=== PATIENT | female | born 1945 | race Caucasian/White ===

== ENCOUNTER 2017-12-12 06:03 | Day surgery (SDC) | payer MEDICARE, OTHER ==
[2017-12-05 11:46] LABS: BASOPHILS % (AUTO) 0.5 % (0-1); EOSINOPHILS # (AUTO) 0.1 X10'3 (0-0.9); EOSINOPHILS % (AUTO) 2.3 % (0-6); LYMPHOCYTES # (AUTO) 2.4 X10'3 (1.1-4.8); LYMPHOCYTES % (AUTO) 37.1 % (21-51); MEAN CORPUSCULAR HEMOGLOBIN 31.1 PG (27.0-31.0); MEAN CORPUSCULAR HGB CONC 33.3 % (33.0-36.5); MEAN CORPUSCULAR VOLUME 93.4 FL (78-98); MEAN PLATELET VOLUME 7.8 FL (7.4-10.4); MONOCYTES # (AUTO) 0.7 X10'3 (0-0.9); MONOCYTES % (AUTO) 10.4 % (2-12); NEUTROPHILS # (AUTO) 3.2 X10'3 (1.8-7.7); NEUTROPHILS % (AUTO) 49.7 % (42-75); PRE OP HEMATOCRIT 38.2 % (35.0-45.0); PRE OP HEMOGLOBIN 12.7 g/dL (12.0-16.0); PRE OP PLATELET COUNT 221 X10'3 (140-440); RED BLOOD COUNT 4.08 X10'6 (4.20-5.60); RED CELL DISTRIBUTION WIDTH 14.3 % (11.5-14.5)
[2017-12-05 12:00] LABS: ALBUMIN 3.7 G/DL (3.4-5.0); ALBUMIN/GLOBULIN RATIO 1.1 (1.1-1.5); ALKALINE PHOSPHATASE 98 IU/L (46-116); BLOOD UREA NITROGEN 16 MG/DL (7-18); BUN/CREATININE RATIO 20.3 (6.6-38.0); CALCIUM 8.8 MG/DL (8.5-10.1); CHLORIDE 105 MMOL/L (99-107); CREATININE 0.79 MG/DL (0.40-0.90); PRE OP ALT 28 U/L (30-65); PRE OP ANION GAP 6 (8-16); PRE OP AST 22 U/L (10-37); PRE OP BILIRUB, TOTAL 0.4 MG/DL (0.0-1.0); PRE OP GLUCOSE 92 MG/DL (70-104); PRE OP POTASSIUM 4.5 MMOL/L (3.4-5.1); PRE OP SODIUM 140 MMOL/L (135-145); TOTAL PROTEIN 7.2 G/DL (6.4-8.2); eGFR 71 ML/MIN
[~2017-12-12] VITALS: Ht 168.9 cm; Wt 60.9 kg
[~2017-12-12 06:03] MED LIST: ASCO-139 PO; ATOR40TA72 PO; CHOL50004 PO; CITA20TA19 PO; LEVE750T PO; VITA150T PO; ceFAZolin 1,000 MG/D5W 50ML IVPB Premixed bag IV ONE; famotidine 20mg tablet PO ONE; ringers solution, lacted 1,000 ML IV SCH
[2017-12-12] MEDS ORDERED: ringers solution, lacted 1,000 ML IV SCH (07:59)
[2017-12-12] MEDS ORDERED: proCHLORperazine 10 MG/2 ml inj IV PRN (08:00)
[2017-12-12] MEDS ORDERED: meperidine/PF 25mg/ml syringe IV PRN ×3 (08:00)
[2017-12-12] MEDS ORDERED: morphine 4 MG/ML inj SYRINge IV PRN ×2 (08:00)
[2017-12-12] MEDS ORDERED: ondansetron/PF 4mg/2ml inj IV PRN (08:00)
[2017-12-12 08:09] VITALS: BP 120/66
[2017-12-12 08:18] VITALS: BP 120/66
[2017-12-12] MEDS ORDERED: BUPIVAcaine/PF 2.5mg/ml (0.25%) 10ml vial ONE (08:33)
[2017-12-12] MEDS ORDERED: LIDOcaine 0.5% (5mg/ml) 50ml vial ONE (08:37)
[2017-12-12] MEDS ORDERED: fentaNYL/PF 50MCG/1 ML 2ML syringe ONE (08:38)
[2017-12-12] MEDS ORDERED: MIDAZolam 5mg/5ml vial ONE (08:39)
[2017-12-12 09:22] VITALS: BP 111/60
[2017-12-12 09:32] VITALS: BP 108/64
[2017-12-12 09:42] VITALS: BP 129/77
[2017-12-12 09:52] VITALS: BP 129/74
== END 2017-12-12 10:02 | disposition home or self-care (01) ==
LOC: PAS 06:03
PROVIDERS: ATTEND Orthopaedic Surgery Hand Surgery
DX: M18.11 Unilateral primary osteoarthritis of first carpometacarpal joint, right hand (principal); M25.741 Osteophyte, right hand; M19.90 Unspecified osteoarthritis, unspecified site; E03.9 Hypothyroidism, unspecified; Z72.89 Other problems related to lifestyle; Z85.72 Personal history of non-Hodgkin lymphomas; Z92.21 Personal history of antineoplastic chemotherapy; Z95.0 Presence of cardiac pacemaker; Z85.118 Personal history of other malignant neoplasm of bronchus and lung; Z79.899 Other long term (current) drug therapy; Z87.891 Personal history of nicotine dependence; Z98.890 Other specified postprocedural states
CPT/HCPCS: 25447; 36415; 80053; 85025; 93005; A6222; A6449; J0690; J2001; J2250; J3010; J3490; J7120; L8630; A7000

== ENCOUNTER 2025-01-28 06:39 | Day surgery (SDC) | payer MEDICARE, OTHER ==
[2025-01-28] VITALS (8 sets, daily range): BP systolic 106–119; BP diastolic 50–55; PULSE 60; RESP 12–15; O2SAT 93–96
[~2025-01-28] VITALS: Ht 167.6 cm; Wt 56.1 kg
[~2025-01-28 06:39] MED LIST changes: -ATOR40TA72 PO; -CHOL50004 PO; -CITA20TA19 PO; +CITA40TA22 PO; +CYAN50005 PO; +DIAZ5TAB23 PO; +GLUC1CAP36 PO; -LEVE750T PO; +LEVE750T35 PO; +OMEP20CA16 PO; -VITA150T PO; -ceFAZolin 1,000 MG/D5W 50ML IVPB Premixed bag IV ONE; -famotidine 20mg tablet PO ONE; -ringers solution, lacted 1,000 ML IV SCH
--- NOTE | 2025-01-28 07:27 | ELECTROCARDIOGRAPH REPORT ---
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 LORENZA Martinez Measurements Intervals [place] Rate: 60 P: 0 MN: 161 QRS: 48 QRSD: 93 T: 60 QT: 447 QTc: 447 Interpretive Statements Atrial-paced rhythm Electronically Signed On 01-28-2025 17:02:[address] LORENZA Martinez Please click the below link to view image of tracing.
[2025-01-28 07:32] LABS: MEAN PLATELET VOLUME 8.4 FL (7.4-10.4); RED CELL DISTRIBUTION WIDTH 14.5 % (11.5-14.5)
[2025-01-28 07:42] LABS: INR 1.0 INR
[2025-01-28] MEDS: vancomycin/NS 1 GM ADD-VANTAGE 250 ML IV ONE (08:28)
[2025-01-28] MEDS ORDERED: fentaNYL/PF 50MCG/1 ML 2ML syringe ONE (08:49)
[2025-01-28] MEDS ORDERED: LIDOcaine 1% W/epiNEPHrine 1:100,000 20ml vial ONE (08:49)
[2025-01-28] MEDS ORDERED: vancomycin 1,000mg inj ONE (08:49)
[2025-01-28] MEDS ORDERED: midazolam 1 mg/ML 2ml injection ONE (08:49)
[2025-01-28] MEDS ORDERED: normal saline 1000ml 1,000 ML IV SCH (10:20)
--- NOTE | 2025-01-28 10:22 | CARDIOLOGY REPORT ---
DATE OF SERVICE: 01/28/2025 DICTATING PHYSICIAN: ESAU JAIME DO CARDIAC CATHETERIZATION REPORT REFERRING PHYSICIAN: Veronica Rodarte MD. HISTORY: This 80-year-old woman has had a permanent pacemaker since 2016. It was implanted for symptomatic bradycardia/sick sinus syndrome. The generator is now at the elective replacement interval. ANESTHESIA: Conscious sedation with local to skin. DEVICE REMOVED: [employer] pulse generator model #L301 and serial #[id number]. ELECTRODES: [employer] [employer] RV electrode model #4497 and serial #[id number]; [employer] right atrial electrode model #4136 and serial #[id number]. DEVICES IMPLANTED: [employer] device model #187767 and serial #[id number]. DESCRIPTION OF PROCEDURE: The patient was sedated with fentanyl and Versed. She was then prepared and draped in the usual manner. The left pectoral region was liberally infiltrated with 1% lidocaine containing a 1:100,000 mixture of epinephrine. The pacemaker pocket was opened by incising along the existing scar line. Most of the scarified capsule was excised. The pocket was enlarged slightly in a superior direction. The old generator was removed and the electrodes were switched over to the new generator, which was then placed in the pocket. It was suspended with an 0 Ethibond suture. The pocket was then irrigated with a vancomycin antibiotic solution. The subcutaneous layer was closed with 3-0 Vicryl and the skin was approximated with a surgical adhesive. ESTIMATED BLOOD LOSS: Essentially 0. COMPLICATIONS: No complications. Testing of the electrodes demonstrated as follows for the right ventricular lead, capture threshold 0.7 volts, impedance 371 ohms, and sensed R-wave 9.1 millivolts. For the right atrial electrode, captured threshold was 0.7 volts, impedance 449 ohms, and sensed P-wave 3.8 millivolts. The same antoine parameter settings were retained as with the previous device. These were a mode of DDDR/ADIR with lower and upper limits of 60 and 130 BPM. Atrial voltage 2.0 with a pulse width of 0.4 milliseconds, right ventricular voltage 2.4 volts at a pulse width of 0.4 milliseconds. ESAU JAIME DO TID: [id number] RECEIPT: [id number] /[facility]
[2025-01-28 13:00] LABS: CREATININE 0.90 MG/DL (0.40-0.90); TOTAL CARBON DIOXIDE 28.6 MMOL/L (24-32); eCRCL 43 ML/MIN; eGFR 60 ML/MIN
[2025-01-29] MEDS ORDERED: ceFAZolin 2gm/dext,iso 50mL 50 ML IV ONE (05:30)
== END 2025-01-28 12:15 | disposition home or self-care (01) ==
LOC: SSTAY O 06:39
PROVIDERS: ATTEND Internal Medicine Cardiovascular Disease
DX: I49.5 Sick sinus syndrome (principal); E89.0 Postprocedural hypothyroidism; E78.5 Hyperlipidemia, unspecified; K21.9 Gastro-esophageal reflux disease without esophagitis; G43.909 Migraine, unspecified, not intractable, without status migrainosus; Z79.899 Other long term (current) drug therapy; Z98.890 Other specified postprocedural states
CPT/HCPCS: 33228; 36415; 80053; 85025; 85610; 93005; 99152; 99153; C1785; J1171; J2250; J3010; J3373; J3490; J7030; Z7610